=== PATIENT | male | born 1980 | race Caucasian/White ===

== ENCOUNTER 2022-08-06 13:55 | Inpatient (IN) | payer OTHER ==
[2022-08-06 17:17] VITALS: BMI 28.1
[2022-08-06] MEDS ORDERED: LOPERAMIDE HCL 2 MG CAPSULE PO PRN (19:42)
[2022-08-06] MEDS ORDERED: diazePAM 5 MG TABLET PO PRN (19:42)
[2022-08-06] MEDS ORDERED: NALOXONE HCL (KLOXXADO) 8 MG SPRAY NS PRN (19:42)
[2022-08-06] MEDS ORDERED: MAGNESIUM HYDROX 2400MG/30ML ORAL SUSPENSION 30 ML CUP PO PRN (19:42)
[2022-08-06] MEDS ORDERED: NALOXONE HCL 0.4 MG/ML VIAL IM PRN (19:42)
[2022-08-06] MEDS ORDERED: IBUPROFEN 400 MG TABLET (FP) PO PRN (19:42)
[2022-08-06] MEDS ORDERED: MAG HYDROX/AL HYDROX/SIMETH 30 ML UNIT-DOSE CUP PO PRN (19:42)
[2022-08-06] MEDS ORDERED: ONDANSETRON *ODT* 4 MG TABLET SL PRN (19:42)
[2022-08-06] MEDS ORDERED: NICOTINE 10 MG CARTRIDGE (INHALER) IH PRN (19:42)
[2022-08-06] MEDS ORDERED: BISMUTH SUBSALICYLATE 524 MG/30 ML PO PRN (19:42)
[2022-08-06] MEDS ORDERED: BENZOCAINE/MENTHOL (CHLORASEPTIC ) LOZENGE MM PRN (19:42)
[2022-08-06] MEDS ORDERED: DICYCLOMINE HCL 10 MG CAPSULE PO PRN (19:42)
[2022-08-06] MEDS ORDERED: POLYETHYLENE GLYCOL (HEALTHYLAX) 3350 17 GM PACKET PO PRN (19:42)
[2022-08-06] MEDS ORDERED: ACETAMINOPHEN 325 MG TABLET (FP) PO PRN (19:42)
[2022-08-06] MEDS ORDERED: MELATONIN 5 MG TABLETS ONE (21:29)
[2022-08-06] MEDS: MELATONIN 5 MG TABLETS PO SCH (21:31)
[2022-08-06] MEDS: diazePAM 5 MG TABLET PO SCH (22:22)
[2022-08-06] MEDS: THIAMINE HCL 100 MG TABLET (FP) PO SCH (22:22)
[2022-08-07] MEDS: diazePAM 5 MG TABLET PO SCH ×4 (05:28→23:20)
[2022-08-07] MEDS: PRENATAL VITAMINS W/ FOLIC ACID TABLET (FP) PO SCH (10:05)
[2022-08-07] MEDS: hydrOXYzine PAMOATE 25 MG CAPSULE (FP) PO PRN ×3 (10:05→22:15)
[2022-08-07] MEDS ORDERED: methaDONE HCL 10 MG TABLET PO SCH (10:15)
[2022-08-07] MEDS: DEXTROAMPHETAMINE/AMPHETAMINE 10 MG CAP.ER.24H PO SCH (12:35)
[2022-08-07] MEDS: guaiFENesin 600 MG TABLET.ER (FP) PO PRN (14:26)
[2022-08-07] MEDS: BENZONATATE 200 MG CAPSULE PO PRN (17:30)
[2022-08-07] MEDS: diazePAM 5 MG TABLET PO ONE ×2 (17:31→22:13)
[2022-08-07] MEDS: NICOTINE POLACRILEX 2 MG GUM BUC PRN (17:51)
[2022-08-07] MEDS: THIAMINE HCL 100 MG TABLET (FP) PO SCH (22:12)
[2022-08-07] MEDS: MELATONIN 5 MG TABLETS PO SCH (22:12)
[2022-08-07] MEDS: HYDROCHLOROTHIAZIDE 25 MG TABLET (FP) PO SCH (23:20)
[2022-08-08] MEDS: hydrOXYzine PAMOATE 25 MG CAPSULE (FP) PO PRN ×3 (05:28→21:43)
[2022-08-08] MEDS: diazePAM 5 MG TABLET PO SCH ×3 (05:28→21:54)
[2022-08-08] MEDS: IBUPROFEN 600 MG TABLET (FP) PO PRN (06:43)
[2022-08-08] MEDS ORDERED: DEXTROAMPHETAMINE/AMPHETAMINE 10 MG CAP.ER.24H PO SCH (10:00)
[2022-08-08] MEDS: PRENATAL VITAMINS W/ FOLIC ACID TABLET (FP) PO SCH (10:26)
[2022-08-08] MEDS: DEXTROAMPHETAMINE/AMPHETAMINE 10 MG CAP.ER.24H PO SCH (11:00)
[2022-08-08] MEDS: HYDROCHLOROTHIAZIDE 25 MG TABLET (FP) PO SCH (11:41)
[2022-08-08] MEDS: guaiFENesin 600 MG TABLET.ER (FP) PO PRN (12:53)
[2022-08-08] MEDS: NICOTINE POLACRILEX 2 MG GUM BUC PRN (14:16)
[2022-08-08] MEDS: amLODIPine BESYLATE 5 MG TABLET (FP) PO SCH (15:23)
[2022-08-08 17:45] LABS: HEMATOCRIT 35.9 % (35.4-49); HEMOGLOBIN 12.1 GM/dL (11.7-16.9); MCH 29.9 pg (25.7-33.7); MCHC 33.8 g/dl (32.0-35.9); MEAN CELL VOLUME 88.4 fl (80-96); MEAN PLT VOLUME 8.1 fl (7.5-11.1); PLATELET COUNT 281 10^3/uL (134-434); RBC 4.06 M/mm3 (4.00-5.60); RDW 14.5 % (11.9-15.9); WHITE BLOOD COUNT 7.2 K/mm3 (4.0-10.0)
[2022-08-08 17:57] LABS: POTASSIUM 4.2 mmol/L (3.5-5.1)
[2022-08-08 18:00] LABS: BLOOD UREA NITROGEN 20.4 mg/dL (7-18)
[2022-08-08 18:02] LABS: CALCIUM 9.3 mg/dL (8.5-10.1)
[2022-08-08 18:04] LABS: CREATININE 0.9 mg/dL (0.55-1.3)
[2022-08-08 18:05] LABS: BILIRUBIN,TOTAL 0.2 mg/dL (0.2-1); TOT PROT 6.8 g/dl (6.4-8.2)
[2022-08-08] MEDS: THIAMINE HCL 100 MG TABLET (FP) PO SCH (21:54)
[2022-08-08] MEDS: BENZONATATE 200 MG CAPSULE PO PRN (21:58)
[2022-08-08] MEDS: MELATONIN 5 MG TABLETS PO SCH (21:58)
[2022-08-08] MEDS ORDERED: DEXTROAMPHETAMINE/AMPHETAMINE 10 MG CAP.ER.24H PO ONE (22:00)
[2022-08-09] MEDS: diazePAM 5 MG TABLET PO SCH ×2 (05:33→17:32)
[2022-08-09] MEDS: NICOTINE POLACRILEX 2 MG GUM BUC PRN ×3 (05:38→22:07)
[2022-08-09] MEDS: IBUPROFEN 600 MG TABLET (FP) PO PRN (05:40)
[2022-08-09] MEDS: METHOCARBAMOL 500 MG TABLET PO PRN ×2 (05:40→22:05)
[2022-08-09 06:04] VITALS: RESP 18
[2022-08-09] MEDS: PRENATAL VITAMINS W/ FOLIC ACID TABLET (FP) PO SCH (10:07)
[2022-08-09] MEDS: DEXTROAMPHETAMINE/AMPHETAMINE 10 MG CAP.ER.24H PO SCH (10:08)
[2022-08-09] MEDS: amLODIPine BESYLATE 5 MG TABLET (FP) PO SCH (10:08)
[2022-08-09] MEDS: hydrOXYzine PAMOATE 25 MG CAPSULE (FP) PO PRN ×2 (10:08→17:54)
[2022-08-09] MEDS: guaiFENesin 200 MG/10 ML 10 ML UNIT-DOSE CUPS PO PRN ×3 (10:10→22:04)
[2022-08-09] MEDS ORDERED: DOCUSATE SODIUM 100 MG CAPSULE (FP) PO ONE (10:15)
[2022-08-09] MEDS: HYDROCHLOROTHIAZIDE 25 MG TABLET (FP) PO SCH (10:36)
[2022-08-09] MEDS: THIAMINE HCL 100 MG TABLET (FP) PO SCH (22:02)
[2022-08-09] MEDS: MELATONIN 5 MG TABLETS PO SCH (22:03)
[2022-08-10] MEDS: hydrOXYzine PAMOATE 25 MG CAPSULE (FP) PO PRN (02:42)
[2022-08-10] MEDS: diazePAM 5 MG TABLET PO ONE (05:24)
[2022-08-10] MEDS: guaiFENesin 200 MG/10 ML 10 ML UNIT-DOSE CUPS PO PRN ×2 (05:29→09:27)
[2022-08-10 09:19] VITALS: BP 138/75; PULSE 82; TEMP 96.9
[2022-08-10] MEDS: amLODIPine BESYLATE 5 MG TABLET (FP) PO SCH (09:24)
[2022-08-10] MEDS: HYDROCHLOROTHIAZIDE 25 MG TABLET (FP) PO SCH (09:24)
[2022-08-10] MEDS: PRENATAL VITAMINS W/ FOLIC ACID TABLET (FP) PO SCH (09:24)
[2022-08-10] MEDS: DEXTROAMPHETAMINE/AMPHETAMINE 10 MG CAP.ER.24H PO SCH (09:25)
== END 2022-08-10 09:52 | disposition home or self-care (01) | DRG 773 ==
LOC: YASAS 13:55 → Y6N 20:42
PROVIDERS: ADMIT Allergy & Immunology; ATTEND Surgery
PROC: HZ2ZZZZ Detoxification Services for Substance Abuse Treatment (ICD-10-PCS; principal; 2022-08-06)
DX: F10.230 Alcohol dependence with withdrawal, uncomplicated (principal); F11.20 Opioid dependence, uncomplicated; F14.20 Cocaine dependence, uncomplicated; F13.20 Sedative, hypnotic or anxiolytic dependence, uncomplicated; F12.20 Cannabis dependence, uncomplicated; F17.210 Nicotine dependence, cigarettes, uncomplicated; F33.9 Major depressive disorder, recurrent, unspecified; F19.282 Other psychoactive substance dependence with psychoactive substance-induced sleep disorder; F19.24 Other psychoactive substance dependence with psychoactive substance-induced mood disorder; I10 Essential (primary) hypertension; M54.50 Low back pain, unspecified; G89.29 Other chronic pain; S09.90XA Unspecified injury of head, initial encounter; W22.8XXA Striking against or struck by other objects, initial encounter; Y92.238 Other place in hospital as the place of occurrence of the external cause; Z56.0 Unemployment, unspecified; Z59.01 Sheltered homelessness
CPT/HCPCS: 26055; 36415; 71045-TC-FY; 80053; 85027; 86780; 87811; 93005; 93010; C9803-CS; U0003; U0005